=== PATIENT | female | born 1955 | race Asian ===

== ENCOUNTER 2016-09-25 12:51 | Inpatient (IN) | payer BC ==
[~2016-09-25] VITALS: Ht 165.1 cm; Wt 61.3 kg
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
[2016-09-25 13:35] LABS: BASOPHIL % 0.7 % (0-2); PLATELET COUNT 357 x10^3mcL (130-400); RED CELL DISTRIBUTION WIDTH 12.9 % (11.5-14.5)
--- NOTE | 2016-09-25 13:37 | NUR ---
[facility]
[2016-09-25 13:41] LABS: CARBON DIOXIDE 25.6 mmol/L (21-32); CHLORIDE SERUM 107 mmol/L (98-107); CREATININE SERUM 0.6 mg/dL (0.6-1.0); GFR1 > 60 mL/min; GLUCOSE SERUM 115 mg/dL (74-106); POTASSIUM SERUM 3.6 mmol/L (3.5-5.1); SODIUM SERUM 145 mmol/L (136-145)
[2016-09-25 13:46] LABS: ALBUMIN 3.9 g/dL (3.4-5.0); ALKALINE PHOSPHATASE 60 U/L (46-116); ALT/SGPT 32 U/L (14-59); AST/SGOT 32 U/L (15-37); BILIRUBIN TOTAL 0.49 mg/dL (0.20-1.00); TOTAL PROTEIN, SERUM 7.7 g/dL (6.4-8.2)
--- NOTE | 2016-09-25 14:40 | NUR ---
PT IN STABLE CONDITION. RESP EVEN AND UNLABORED, RA. VS STABLE. NAD NOTED.
--- NOTE | 2016-09-25 14:45 | NUR ---
ATTEMPTED TO GIVE REPORTS TO EVE CAMPBELL, REQUESTING CALL BACK IN 10M MINS. CALLED [facility] TO GIVE REPORT BUT UNABLE TO HAVE REPORT TAKEN AT THIS TIME
--- NOTE | 2016-09-25 15:12 | NUR ---
ATTEMPTED TO CALL FOR REPORT. NO ANSWER AT THIS TIME
--- NOTE | 2016-09-25 15:27 | NUR ---
REPORT GIVEN TO THAI RN IN [facility] FOR CONTINUITY OF CARE. PT OFF UNIT AT THIS TIME FOR CT SCAN OF HEAD
--- NOTE | 2016-09-25 15:30 | NUR ---
PT BROUGHT BACK TO ROOM FROM CT SCAN. PER DR BULL: WAIT FOR CT SCAN RESULTS BEFORE TRANSFER TO [facility]
[2016-09-25 16:09] LABS: PHOSPHOROUS 3.2 mg/dL (2.5-4.9)
[2016-09-25 16:14] LABS: CHOLESTEROL/HDL RATIO 4.2
[2016-09-25 16:16] LABS: T3 TOTAL 1.27 ng/mL
[2016-09-25 16:18] LABS: FREE T4 1.21 ng/dL (0.76-1.46); FREE THYROXINE INDEX 3.4 ug/dL (1.4-4.5); T4(THYROXINE) 10.7 ug/dL (4.7-13.3)
[2016-09-25 16:35] VITALS: BP 144/76
[2016-09-25] MEDS ORDERED: FAMOTIDINE40 MG PO (17:03)
--- NOTE | 2016-09-25 17:16 | NUR ---
RECEIVED PT FROM ED VIA [facility]. ORIENTED PT TO ROOM AND SURROUNDINGS. IV NOTED TO LEFT HAND PATENT AND INTACT. TELE 10 PLACED ON PT READING NSR. INSTRUCTED PT ON THE USE OF CALL LIGHT FOR ASSISTANCE. ENDORSED PT TO PRIMARY NURSE
[2016-09-25 17:38] VITALS: Ht 165.1 cm; Wt 61.3 kg
[2016-09-25 17:52] LABS: microscopic required? NO
[2016-09-25 17:56] LABS: urine erythrocyte NEGATIVE (NEGATIVE)
[2016-09-25 18:05] LABS: AMPHETAMINE QUAL UR NONE DETECTED (NEG <=1000)
--- NOTE | 2016-09-25 18:25 | NUR ---
PT RESTING IN BED NO SIGNS OF DISTRESS CALL LIGHT IN REACH WILL CONTINUE TO MONITOR.
--- NOTE | 2016-09-25 19:10 | NUR ---
PATIENT RECIEVED AWAKE, ALERT, AND ORIENTED X 4. FAMILY AT BEDSIDE. NO DISTRESS NOTED. PATIENT DENIES CHEST PAIN AT THIS TIME. IV SITE TO LEFT HAND, PATENT AND INTACT. IV FLUID INFUSING PER DOCTOR'S ORDER. BED IN LOWEST POSITION. CALL LIGHT WITHIN REACH. WILL CONTINUE TO MONITOR.
[2016-09-25 20:48] VITALS: BP 129/59
--- NOTE | 2016-09-26 05:08 | NUR ---
PATIENT RESTED THROUGHOUT THE NIGHT. NO DISTRESS NOTED. NO C/O CHEST PAIN/DISCOMFORT. ALL NEEDS MET. SAFETY AND COMFORT MEASURES MAINTAINED. BED IN LOWEST POSITION. CALL LIGHT WITHIN REACH. WILL CONTINUE TO MONITOR AND ENDORSE TO NEXT SHIFT NURSE.
[2016-09-26 05:14] VITALS: BP 121/51
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
--- NOTE | 2016-09-26 08:00 | NUR ---
DR MEEHAN, RESIDENTS, CHARGE NURSE, AND ASSIGNED NURSE CAME IN TO SEE PT; DISCUSSED CARE PLAN FOR PT, ALL QUESTIONS WERE ANSWERED.
[2016-09-26 11:00] VITALS: BP 120/62
--- NOTE | 2016-09-26 11:10 | NUR ---
PO MEDS GIVEN TO PT LATE D/T ECHO OF HEART DONE AT TIME OF ADMINISTRATION; PT TOOK MEDS, NO S/S DYSPHAGIA. WILL CONTINUE TO MONITOR.
--- NOTE | 2016-09-26 11:17 | NUR ---
ECHOCARDIOGRAM COMPLETED
[2016-09-26] MEDS ORDERED: ZES5 PO (12:00)
[2016-09-26] MEDS ORDERED: LIPI10 PO (12:00)
[2016-09-26 14:02] VITALS: BP 120/62
--- NOTE | 2016-09-26 15:06 | NUR ---
DISCHARGE PAPERS AND INVENTORY FORM WERE GIVEN TO PT AND SIGNED; AND DAUGHTER BY BEDSIDE, WITH DAUGHTER TRANSLATING BETWEEN RN AND PT. DISCUSSED WITH PT WERE RE: HOSPITAL STAY, WHAT WAS DONE FOR PT, AND EDUCATION ON DM AND DYSLIPIDEMIA. ALL QUESTIONS WERE ANSWERED, AND PT VERBALIZED UNDERSTANDING. 20G 1.25" IV CATH DC'D FROM ; SITE NO BLEEDING, REDNESS, PAIN, OR DISCOMFORT. PRESSURE WAS APPLIED TO AVOID BLEEDING, THEN WAS COVERED WITH DRY DRESSING, SECURED WITH TAPE. ID BANDS WERE REMOVED. PT STATED THAT SHE DOES NOT NEED W/C TO GO DOWN. ACCOMPANIED PT AND FAMILY MEMBERS TO [facility], AND WENT HOME VIA PRIVATE VEHICLE. NO S/S OF PAIN, DISCOMFORT, OR RESPIRATORY DISTRESS.
== END 2016-09-26 14:55 | disposition home or self-care (01) | DRG 206 ==
LOC: ED 12:51 → DU 14:29
PROVIDERS: Emergency Medicine; ADMIT Family Medicine
DX: M94.0 Chondrocostal junction syndrome [Tietze] (principal); E11.65 Type 2 diabetes mellitus with hyperglycemia; E02 Subclinical iodine-deficiency hypothyroidism; E78.5 Hyperlipidemia, unspecified; R91.1 Solitary pulmonary nodule; Z77.22 Contact with and (suspected) exposure to environmental tobacco smoke (acute) (chronic); G90.8 Other disorders of autonomic nervous system; K21.9 Gastro-esophageal reflux disease without esophagitis; V47.5XXA Car driver injured in collision with fixed or stationary object in traffic accident, initial encounter; Y93.89 Activity, other specified; Y92.488 Other paved roadways as the place of occurrence of the external cause; Y99.8 Other external cause status; Z90.710 Acquired absence of both cervix and uterus; Z82.49 Family history of ischemic heart disease and other diseases of the circulatory system; Z83.6 Family history of other diseases of the respiratory system
CPT/HCPCS: 83880; 84439; J3010; J7030; Q0092